=== PATIENT | male | born 1965 | race Caucasian/White ===

== ENCOUNTER 2018-05-22 18:28 | Emergency (ER) | payer OTHER ==
[~2018-05-22] VITALS: Ht 162.6 cm; Wt 101.6 kg
[2018-05-22 18:44] VITALS: BP_SYST 143
[2018-05-22 19:05] VITALS: BP_SYST 137
== END 2018-05-22 19:03 | disposition home or self-care (01) ==
LOC: SED 18:28
DX: J01.90 Acute sinusitis, unspecified (principal)
CPT/HCPCS: 99283

== ENCOUNTER 2020-10-26 12:59 | Inpatient (IN) | payer OTHER, SELFPAY ==
[2020-10-26] VITALS (9 sets, daily range): BP systolic 122–141
[~2020-10-26] VITALS: Ht 167.6 cm; Wt 93.9 kg
--- NOTE | 2020-10-26 13:05 | NUR ---
Placed in room 05 . Placed on director of cardiac rehabilitation, blood pressure machine and pulse oximeter. To gown for exam. Side rails up.
--- NOTE | 2020-10-26 13:07 | NUR ---
Pt brought by self, A&Ox4, pt presents to ER with SOB X2 weeks, afebrile, skin pink and warm, cap refill<3, VSS , respirations evena and unlabored.
[2020-10-26 13:41] LABS: BASOPHILS % (AUTO) 0.2 % (0.0-2.0); EOSINOPHILS % (AUTO) 0.1 % (0.0-4.0); HEMATOCRIT 34.2 % (36-54); HEMOGLOBIN 12.2 g/dL (14.0-18.0); LYMPHOCYTES % (AUTO) 10.8 % (20.5-51.5); MEAN CORPUSCULAR HEMOGLOBIN 31 pg (27-31); MEAN CORPUSCULAR HGB CONC 36 % (32-36); MEAN CORPUSCULAR VOLUME 88 fL (79.0-98.0); MONOCYTES # (AUTO) 0.7 K/uL (0.0-1.0); MONOCYTES % (AUTO) 7.8 % (1.7-9.3); NEUTROPHILS # (AUTO) 7.4 K/uL (1.8-7.7); NEUTROPHILS % (AUTO) 81.1 % (40.0-70.0); PLATELET COUNT (AUTO) 174 K/uL (130-430); RED BLOOD CELL COUNT(AUTO) 3.89 MIL/uL (4.2-6.2); RED CELL DISTRIBUTION WIDTH 13.1 % (9.0-15.0); WHITE BLOOD COUNT (AUTO) 9.1 K/uL (4.8-10.8)
[2020-10-26 13:58] LABS: CALCIUM 8.7 mg/dL (8.4-11.0); CREATININE 1.11 mg/dL (0.55-1.30); POTASSIUM 3.2 mmol/L (3.5-5.1)
[2020-10-26 14:00] LABS: INR 0.9 (0.80-1.20); PROTHROMBIN TIME 9.6 SECS (9.5-12.5)
[2020-10-26 14:04] LABS: ALBUMIN 2.7 g/dL (3.4-4.8); TOTAL BILIRUBIN 0.6 mg/dL (0.0-1.0)
[2020-10-26 14:08] LABS: FIBRINOGEN > 500 mg/dL (200-400)
--- NOTE | 2020-10-26 14:11 | NUR ---
Covid swab collected and sent
--- NOTE | 2020-10-26 14:12 | NUR ---
# 20 gauge angiocath placed to RAC. Use of asceptic technique. Opsite placed over site. Blood return noted. Blood for lab drawn from site. Flushed with 10 cc of normal saline. No evidence of infiltration noted. Patient tolerated well.
--- NOTE | 2020-10-26 14:22 | NUR ---
ER at bedside examining patient.
[2020-10-26] MEDS ORDERED: AZITHROMYCIN 500 MG in NS 250 ML IV ONE (14:30)
[2020-10-26] MEDS ORDERED: IPRATROPIUM/ALBUTEROL SULFATE 3 ML AMPUL.NEB (DUONEB) INH ONE (14:30)
[2020-10-26 14:38] LABS: C-REACTIVE PROTEIN QUANT 31.6 mg/dL (0-0.5)
[2020-10-26] MEDS ORDERED: KCL 20 mEq in 100 mL (PREMIX) 100 ML IV ONE (14:45)
[2020-10-26] MEDS ORDERED: cefTRIAXone 2 GM VIAL ONE (14:46)
[2020-10-26] MEDS ORDERED: AZITHROMYCIN 500 MG/VIAL (ZITHROMAX) IV ONE (14:46)
[2020-10-26] MEDS ORDERED: IOHEXOL 350 mgI/mL, 150 ML INFUS..BTL IV ONE (14:49)
[2020-10-26] MEDS ORDERED: DEXAMETHASONE SOD PHOSPHATE 4 MG/ML VIAL IVP ONE (15:00)
[2020-10-26] MEDS ORDERED: ACETAMINOPHEN 325 MG TABLET PO PRN (15:45)
[2020-10-26] MEDS ORDERED: MAGNESIUM SULFATE 50 ML IV PRN (15:45)
[2020-10-26] MEDS ORDERED: MUPIROCIN 2% TOPICAL OINTMENT 22 GM NS PRN (15:45)
[2020-10-26] MEDS ORDERED: ONDANSETRON HCL 4 MG/2 ML VIAL IVP PRN (15:45)
[2020-10-26] MEDS ORDERED: ENOXAPARIN SODIUM 40 MG/0.4 ML SYRINGE SUBCUT ONE (15:45)
[2020-10-26] MEDS ORDERED: MORPHINE 2 MG/ML INJ. SYRINGE IVP PRN ×2 (15:45)
[2020-10-26] MEDS ORDERED: LORazepam 2 MG/ML VIAL IVP PRN (15:45)
[2020-10-26] MEDS ORDERED: POTASSIUM CHLORIDE 20 MEQ TAB.PRT.SR PO PRN (15:45)
[2020-10-26] MEDS ORDERED: DOCUSATE SODIUM 100 MG CAPSULE PO PRN (15:45)
--- NOTE | 2020-10-26 15:45 | NUR ---
# 20 gauge angiocath placed to and. Use of asceptic technique. Opsite placed over site. Blood return noted. Blood for lab drawn from site. Flushed with 10 cc of normal saline. No evidence of infiltration noted. Patient tolerated well.
--- NOTE | 2020-10-26 16:10 | NUR ---
CONSULTS: Admission consults per Dr. Morrison have been put out. Dr. Melecio Ybarra
--- NOTE | 2020-10-26 16:25 | NUR ---
Lab at bedside.
--- NOTE | 2020-10-26 16:25 | NUR ---
Medication reconciliation completed with information provided by Chuck PARISH. Any prior medication reconciliation on file was reviewed and corrected. Pt takes no medications at home.
[2020-10-26] MEDS ORDERED: DECADRON 4 MG TABLET PO SCH (17:00)
--- NOTE | 2020-10-26 17:01 | NUR ---
Patient will be admitted to care of . Admitted to ICU unit. Will go to room 1. Belongings list completed. Complete and up to date summary report printed. SBAR report to be given at bedside with opportunity for questions.
--- NOTE | 2020-10-26 17:15 | NUR ---
Pt transferred to unit from ED. Received SBAR report from nurse Mera. Pt on BiPAP 25/10, 20, 100%.
[2020-10-26] MEDS ORDERED: COMMUNICATION ORDER XX ONE (18:00)
[2020-10-26] MEDS: DEXAMETHASONE SOD PHOSPHATE 10 MG/ML VIAL IVP SCH (18:00)
--- NOTE | 2020-10-26 18:03 | NUR ---
Called Dr. Chong, covering for Dr. Morrison, for clarification of orders. New orders made.
[2020-10-26] MEDS: NACL 0.9% 1,000 ML IV SCH (18:19)
--- NOTE | 2020-10-26 19:16 | NUR ---
Closing note: SBAR report given to oncoming nurse. All cares endorsed.
--- NOTE | 2020-10-26 20:06 | NUR ---
Initial note Received SBAR report from dayshift RN. Received resting in bed with eyes closed easily aroused. On BIPAP 18/8 100%FiO2, tolerating well. Afebrile. NS infusing to left AC @ 70 cc/hr. Denies pain or discomfort. Will continue to monitor.
[2020-10-26] MEDS ORDERED: cefTRIAXone 1 GM IVPB PREMIX 50 ML IV ONE (20:48)
[2020-10-26] MEDS: cefTRIAXone 1 GM in D5W 50 ML IV SCH (20:52)
[2020-10-26] MEDS: BARICITINIB -Non-Formulary 2 MG TABLET PO SCH (20:53)
[2020-10-26] MEDS: ENOXAPARIN SODIUM 40 MG/0.4 ML SYRINGE SUBCUT SCH (21:00)
--- NOTE | 2020-10-26 21:10 | NUR ---
Due PO medications administered. Tolerated well.
[2020-10-27] VITALS (24 sets, daily range): BP systolic 111–150
[2020-10-27 00:40] LABS: BILIRUBIN,URINE NEGATIVE (NEGATIVE); BLOOD, URINE NEGATIVE (NEGATIVE); CLARITY/URINE CLEAR (CLEAR); COLOR,URINE YELLOW (YELLOW); GLUCOSE,URINE NEGATIVE (NEGATIVE); KETONES,URINE 1+ (NEGATIVE); LEUKOCYTE ESTERASE ,URINE NEGATIVE (NEGATIVE); NITRITE, URINE NEGATIVE (NEGATIVE); PH,URINE 5.5 (5.0-8.0); PROTEIN URINE NEGATIVE (NEGATIVE); UROBILINOGEN,URINE 0.2 (0.2-1.0)
--- NOTE | 2020-10-27 05:45 | NUR ---
CHG bath given. Sitting up on side of bed. Tolerated well.
[2020-10-27 06:43] LABS: BASOPHILS % (AUTO) 0.2 % (0.0-2.0); HEMATOCRIT 33.9 % (36-54); HEMOGLOBIN 11.7 g/dL (14.0-18.0); LYMPHOCYTES # (AUTO) 0.8 K/uL (1.0-5.5); LYMPHOCYTES % (AUTO) 14.1 % (20.5-51.5); MEAN CORPUSCULAR HEMOGLOBIN 31 pg (27-31); MEAN CORPUSCULAR HGB CONC 35 % (32-36); MEAN CORPUSCULAR VOLUME 89 fL (79.0-98.0); MONOCYTES # (AUTO) 0.7 K/uL (0.0-1.0); MONOCYTES % (AUTO) 12.6 % (1.7-9.3); NEUTROPHILS # (AUTO) 4.2 K/uL (1.8-7.7); NEUTROPHILS % (AUTO) 73.1 % (40.0-70.0); PLATELET COUNT (AUTO) 209 K/uL (130-430); RED BLOOD CELL COUNT(AUTO) 3.79 MIL/uL (4.2-6.2); RED CELL DISTRIBUTION WIDTH 13.1 % (9.0-15.0); WHITE BLOOD COUNT (AUTO) 5.8 K/uL (4.8-10.8)
[2020-10-27 06:57] LABS: ALBUMIN 2.2 g/dL (3.4-4.8); CALCIUM 8.3 mg/dL (8.4-11.0); CREATININE 0.98 mg/dL (0.55-1.30); TOTAL BILIRUBIN 0.4 mg/dL (0.0-1.0)
--- NOTE | 2020-10-27 07:10 | NUR ---
Opening note: SBAR report received from night nurse. All cares assumed. Pt on BiPAP 18/8, R 20, 100%, maintaining sats above 90%.
--- NOTE | 2020-10-27 07:20 | NUR ---
Closing note Resting quietly, all needs attended to. SBAR report given to oncoming shift RN.
[2020-10-27] MEDS: BARICITINIB -Non-Formulary 2 MG TABLET PO SCH (08:50)
[2020-10-27] MEDS: CHOLECALCIFEROL (VITAMIN D3) 2,000 UNIT TABLET PO SCH (08:50)
[2020-10-27] MEDS: AZITHROMYCIN 250 MG TABLET PO SCH (08:50)
[2020-10-27] MEDS: ASCORBIC ACID 500 MG TABLET PO SCH (08:50)
[2020-10-27 08:51] LABS: ERYTHROCYTE SEDIMENTATION RATE 99 MM/HR (0-15)
[2020-10-27] MEDS: ENOXAPARIN SODIUM 40 MG/0.4 ML SYRINGE SUBCUT SCH ×2 (08:53→21:36)
--- NOTE | 2020-10-27 09:05 | NUR ---
RT placed pt on High flow, per Dr. Majano orders. High flow 60L 100%, maintaining sats above 90%.
[2020-10-27] MEDS ORDERED: BUDESONIDE 0.5 MG/2 ML AMPUL.NEB INH ONE (10:00)
--- NOTE | 2020-10-27 10:06 | NUR ---
RT NOTES 0820 Pt currently on BIPAP (25/10/ R20 100%), 0901During Dr. Majano's rounds, he ordered pt to be placed on HFNC 60L/100% fio2, saturation 92%. will titrate as needed. will continue to monitor pt. JEM russo.
[2020-10-27 10:10] LABS: C-REACTIVE PROTEIN QUANT 16.4 mg/dL (0-0.5)
--- NOTE | 2020-10-27 12:30 | NUR ---
Pt requesting foods that are easier to eat such as oatmeal, cream of wheat and soups. Vice President Mission Integration Zunilda approved diet change and will enter diet order.
--- NOTE | 2020-10-27 15:49 | NUR ---
Dietitian Recommendations * Recommend mechanical soft, CCHO diet w/ Glucerna TID (ONS provides 660 kcal/day, 30 gm protein/day) * Encourage increase PO intakes LP, RD Please refer to Nutrition Assessment for details. Addendum: 10/27/20 at [address] Amended: Links added.
[2020-10-27] MEDS: NACL 0.9% 1,000 ML IV SCH ×2 (15:54→20:21)
[2020-10-27] MEDS: DEXAMETHASONE SOD PHOSPHATE 10 MG/ML VIAL IVP SCH (17:04)
--- NOTE | 2020-10-27 19:08 | NUR ---
Closing note: SBAR report given to oncoming caustic cresylate shift superintendent nurse. Pt resting in bed.
[2020-10-27] MEDS: cefTRIAXone 1 GM in D5W 50 ML IV SCH (20:00)
[2020-10-28] VITALS (24 sets, daily range): BP systolic 108–174
[2020-10-28 07:09] LABS: ALBUMIN 2.1 g/dL (3.4-4.8); C-REACTIVE PROTEIN QUANT 5.7 mg/dL (0-0.5); CALCIUM 8.2 mg/dL (8.4-11.0); CREATININE 0.82 mg/dL (0.55-1.30); TOTAL BILIRUBIN 0.4 mg/dL (0.0-1.0)
[2020-10-28 07:14] LABS: BASOPHILS % (AUTO) 0.1 % (0.0-2.0); HEMATOCRIT 32.7 % (36-54); HEMOGLOBIN 11.3 g/dL (14.0-18.0); LYMPHOCYTES # (AUTO) 0.9 K/uL (1.0-5.5); LYMPHOCYTES % (AUTO) 9.2 % (20.5-51.5); MEAN CORPUSCULAR HEMOGLOBIN 31 pg (27-31); MEAN CORPUSCULAR HGB CONC 35 % (32-36); MEAN CORPUSCULAR VOLUME 90 fL (79.0-98.0); MONOCYTES # (AUTO) 0.9 K/uL (0.0-1.0); MONOCYTES % (AUTO) 8.7 % (1.7-9.3); NEUTROPHILS # (AUTO) 8.4 K/uL (1.8-7.7); PLATELET COUNT (AUTO) 289 K/uL (130-430); RED BLOOD CELL COUNT(AUTO) 3.65 MIL/uL (4.2-6.2); RED CELL DISTRIBUTION WIDTH 13.3 % (9.0-15.0); WHITE BLOOD COUNT (AUTO) 10.3 K/uL (4.8-10.8)
--- NOTE | 2020-10-28 07:15 | NUR ---
RECEIVED REPORT FROM ENDORSING MANAGING CONSULTANT RN, PATIENT IS LYING IN BED, ON HIGH FLOW 60L 100 %.FIO2 IS BETWEEN 94-96 %. ADVISE PATIENT TO TURN SIDE TO SIDE.
--- NOTE | 2020-10-28 07:30 | NUR ---
BREAKFAST TRAY GIVEN TO PATIENT, PROVIDED ORAL AND BEDSIDE CARE.
--- NOTE | 2020-10-28 08:00 | NUR ---
RT NOTES Dr french is aware of pt saturation on HFNC 90-91. Stated that he's fine with sat between 88-90%, dr educated pt of avoiding laying on back as well.
[2020-10-28] MEDS: BUDESONIDE 0.5 MG/2 ML AMPUL.NEB INH SCH ×2 (08:01→22:02)
[2020-10-28 09:30] LABS: ERYTHROCYTE SEDIMENTATION RATE 83 MM/HR (0-15)
[2020-10-28] MEDS: AZITHROMYCIN 250 MG TABLET PO SCH (09:54)
[2020-10-28] MEDS: CHOLECALCIFEROL (VITAMIN D3) 2,000 UNIT TABLET PO SCH (09:54)
[2020-10-28] MEDS: ASCORBIC ACID 500 MG TABLET PO SCH (09:54)
[2020-10-28] MEDS: ENOXAPARIN SODIUM 40 MG/0.4 ML SYRINGE SUBCUT SCH ×2 (09:59→21:39)
[2020-10-28] MEDS: NACL 0.9% 1,000 ML IV SCH (10:39)
[2020-10-28] MEDS: BARICITINIB -Non-Formulary 2 MG TABLET PO SCH (11:10)
--- NOTE | 2020-10-28 12:30 | NUR ---
LUNCH TRAY GIVEN TO PATIENT.BEDSIDE CARE RENDERED.
--- NOTE | 2020-10-28 13:15 | NUR ---
PATIENT SUPERVISOR FISH BAIT PROCESSING VISITED AND SIGN SOME PAPERS.
--- NOTE | 2020-10-28 13:58 | NUR ---
RT NOTES Changed sterile water, maintained appropriate temperature. Saturation 92%.
--- NOTE | 2020-10-28 14:20 | NUR ---
INSERTED RIGHT HAND PERIPHERAL IV 22 GAUGE.
[2020-10-28] MEDS: DEXAMETHASONE SOD PHOSPHATE 10 MG/ML VIAL IVP SCH (17:31)
--- NOTE | 2020-10-28 19:23 | NUR ---
ENDORSED PATIENT TO NEW CAR INSPECTOR RN FOR CONTINUATION OF CARE
[2020-10-28] MEDS: cefTRIAXone 1 GM in D5W 50 ML IV SCH (20:24)
--- NOTE | 2020-10-28 20:30 | NUR ---
PATIENT WAS ACCEPTED AND ASSESS DONE NOTICE PATIENT WAS RESP; RATE INCREASE, LABOR BREATHING, RATE 40 , SOB OR PAIN , ASK IF HAVING RESP PROBLEM DEMISE STAT HE WAS TOLD TO BREATH TO KEEP HIS RESP, RATE TO AN CERTAIN NUMBER , EXPLAIN THIS WAS NOT WAY TO BREATH ASK TO BREATH NORMAL SO CAN MONITOR HIS BREATHING , PATIENT IS ON THE HIFLOW LITER NASAL CANNULA ALSO SHOW SIGN OF ANXIETY , WILL SPEAK WITH THE RESP THERAPISTOF THE PATIENT CONDITION AT THIS TIME STABLE
--- NOTE | 2020-10-28 22:00 | NUR ---
PATIENT WAS GIVEN ATIVAN 2MG IV, IF NOT CALM DOWN AND RELAX WILL PLACE ON BIPAP , STABLE WILL CONTINUED TO MONITOR THE PATIENT
[2020-10-29] VITALS (23 sets, daily range): BP systolic 107–152
[2020-10-29] MEDS: NACL 0.9% 1,000 ML IV SCH ×2 (00:57→03:30)
--- NOTE | 2020-10-29 04:00 | NUR ---
PATIENT WAS SLEEP FROM THE ATIVAN 2MG IV GIVEN AT 2216 HAD C/O OF BEING COLD NOTICE THE ROOM WAS VERY COLD , PATIENT HAS NON-REBREATH MASK AT 100% INTACT WITH THE HIFLOW STABLE WILL CONTINUED WITH PLAN OF CARE ,STAble
[2020-10-29 06:45] LABS: BASOPHILS % (AUTO) 0.1 % (0.0-2.0); HEMATOCRIT 31.8 % (36-54); HEMOGLOBIN 10.9 g/dL (14.0-18.0); LYMPHOCYTES # (AUTO) 1.3 K/uL (1.0-5.5); MEAN CORPUSCULAR HEMOGLOBIN 31 pg (27-31); MEAN CORPUSCULAR HGB CONC 34 % (32-36); MEAN CORPUSCULAR VOLUME 90 fL (79.0-98.0); MONOCYTES # (AUTO) 0.9 K/uL (0.0-1.0); MONOCYTES % (AUTO) 8.2 % (1.7-9.3); NEUTROPHILS # (AUTO) 9.3 K/uL (1.8-7.7); NEUTROPHILS % (AUTO) 80.7 % (40.0-70.0); PLATELET COUNT (AUTO) 319 K/uL (130-430); RED BLOOD CELL COUNT(AUTO) 3.52 MIL/uL (4.2-6.2); RED CELL DISTRIBUTION WIDTH 13.2 % (9.0-15.0); WHITE BLOOD COUNT (AUTO) 11.5 K/uL (4.8-10.8)
[2020-10-29 07:09] LABS: ALBUMIN 2.1 g/dL (3.4-4.8); C-REACTIVE PROTEIN QUANT 2.6 mg/dL (0-0.5); CREATININE 0.79 mg/dL (0.55-1.30); TOTAL BILIRUBIN 0.3 mg/dL (0.0-1.0)
[2020-10-29] MEDS: BUDESONIDE 0.5 MG/2 ML AMPUL.NEB INH SCH (09:00)
[2020-10-29] MEDS: ENOXAPARIN SODIUM 40 MG/0.4 ML SYRINGE SUBCUT SCH ×2 (09:05→20:22)
[2020-10-29] MEDS: CHOLECALCIFEROL (VITAMIN D3) 2,000 UNIT TABLET PO SCH (09:05)
[2020-10-29] MEDS: AZITHROMYCIN 250 MG TABLET PO SCH (09:06)
[2020-10-29] MEDS: ASCORBIC ACID 500 MG TABLET PO SCH (09:06)
[2020-10-29] MEDS: BARICITINIB -Non-Formulary 2 MG TABLET PO SCH (09:07)
--- NOTE | 2020-10-29 09:10 | NUR ---
BAR CODE MEDICATION NOT WORKING Zinc doesn't scan. Suha in pharmacy notified. Medication was borrowed from another hospital.
[2020-10-29 09:19] LABS: ERYTHROCYTE SEDIMENTATION RATE 36 MM/HR (0-15)
--- NOTE | 2020-10-29 18:00 | NUR ---
0800-received patient on vapotherm 60L and nonrebreather but patient removes nonrebreather with movement. AAO x3. encouraged patient to sleep on side. Voided 500cc clear and yellow urine. Encouraged to eat due to poor appetite 1000- patient consumed ensure but very little food. Patient had moderate brown stool on bedpan. He desats while getting to edge of bed to 81% but recovers within up to 45min. Encouraged to take deep slow breaths. RR 30s 1200- refused lunch, sleeping on his side. 1400- patient lowered to 40L per RT w 100% oxygen. 1600- voided 400cc, [facility] PICC, IVF changed to site 1745- Remdesevir infusion ongoing. Complete bed bath completed. 1800-voided 400cc, son called for update, Dr. Jane in to see patient and updated on events of day. 1830- total uop for shift 1300cc.
[2020-10-29] MEDS: cefTRIAXone 1 GM in D5W 50 ML IV SCH (20:21)
[2020-10-29] MEDS: DEXAMETHASONE SOD PHOSPHATE 10 MG/ML VIAL IVP SCH (20:52)
[2020-10-30] VITALS (24 sets, daily range): BP systolic 95–132
[2020-10-30] MEDS: NACL 0.9% 1,000 ML IV SCH (00:33)
[2020-10-30 06:54] LABS: EOSINOPHILS % (AUTO) 0.1 % (0.0-4.0); HEMATOCRIT 36.8 % (36-54); HEMOGLOBIN 12.5 g/dL (14.0-18.0); LYMPHOCYTES # (AUTO) 1.2 K/uL (1.0-5.5); LYMPHOCYTES % (AUTO) 9.8 % (20.5-51.5); MEAN CORPUSCULAR HEMOGLOBIN 31 pg (27-31); MEAN CORPUSCULAR HGB CONC 34 % (32-36); MEAN CORPUSCULAR VOLUME 90 fL (79.0-98.0); MONOCYTES # (AUTO) 0.8 K/uL (0.0-1.0); MONOCYTES % (AUTO) 6.6 % (1.7-9.3); NEUTROPHILS # (AUTO) 10.2 K/uL (1.8-7.7); NEUTROPHILS % (AUTO) 83.5 % (40.0-70.0); PLATELET COUNT (AUTO) 407 K/uL (130-430); RED BLOOD CELL COUNT(AUTO) 4.07 MIL/uL (4.2-6.2); RED CELL DISTRIBUTION WIDTH 12.9 % (9.0-15.0); WHITE BLOOD COUNT (AUTO) 12.2 K/uL (4.8-10.8)
--- NOTE | 2020-10-30 07:00 | NUR ---
Recv report fr Xena reardon, patient is inbed on Hi Flow nc/ at 40L @ 100%, patient is aao x 4 telemetry shows normal sinus rhythm, sob on exertion, denies pain , denies short of breath, i will continue nursing care and interventions.
[2020-10-30 08:13] LABS: ALBUMIN 2.4 g/dL (3.4-4.8); C-REACTIVE PROTEIN QUANT 5.9 mg/dL (0-0.5); CALCIUM 8.6 mg/dL (8.4-11.0); CREATININE 0.83 mg/dL (0.55-1.30); PHOSPHORUS 4.3 mg/dL (2.7-4.5); POTASSIUM 3.8 mmol/L (3.5-5.1); TOTAL BILIRUBIN 0.5 mg/dL (0.0-1.0)
[2020-10-30] MEDS: BARICITINIB -Non-Formulary 2 MG TABLET PO SCH (08:51)
[2020-10-30] MEDS: ASCORBIC ACID 500 MG TABLET PO SCH (08:51)
[2020-10-30] MEDS: AZITHROMYCIN 250 MG TABLET PO SCH (08:52)
[2020-10-30] MEDS: ENOXAPARIN SODIUM 40 MG/0.4 ML SYRINGE SUBCUT SCH ×2 (08:52→20:44)
[2020-10-30] MEDS: CHOLECALCIFEROL (VITAMIN D3) 2,000 UNIT TABLET PO SCH (08:52)
[2020-10-30] MEDS: BUDESONIDE 0.5 MG/2 ML AMPUL.NEB INH SCH (09:00)
--- NOTE | 2020-10-30 10:00 | NUR ---
Patient is in bed no changed in condition, Dr. Julio came to see the patient, no orders receive, patient still dieter shortness of brearth, blood pressure stable, i will continue to monitor the pateint.
[2020-10-30 10:52] LABS: ERYTHROCYTE SEDIMENTATION RATE 49 MM/HR (0-15)
--- NOTE | 2020-10-30 12:00 | NUR ---
Patiens is in bed , comfortable no changed, in conditon.
--- NOTE | 2020-10-30 12:47 | NUR ---
Nutrition F/U Admitting Diagnosis: COVID, pneumonia Medical History Comment: PMH: Hx of childhood asthma and SIDNEY, previously vaccinated w/ J&J vaccine for COVID per physician notes Pt also found w/ acute hypoxic respiratory failure, hyponatremia, hypokalemia, malnutrition, and obesity per physician notes SARS-CoV-2 Ag (Rapid) Positive 10/26 Subjective Information: Pt remains in isolation precaution for COVID-[address] visit was deferred. Pt was seen through glass door/window in ICU, pt was seen awake and watching in his phone/pad. RN Preston reported that pt ate the eggs this morning and finished all of his Glucerna. Per EMR review, pt w/ severe breakthrough infection and this is possibly d/t the Delta or Lambda variant. Pt continues w/ remdesivir and decadron. Pt is still hypoxic, on 40% HFNC. Last BM 10/30 x1, Mick scale: 20. No skin issues/edema noted. PO intake records indicate pt is w/ inadequate oral intake. Maximum encouragement during meals and ONS will be continued. Current Diet Order/Nutrition Support: Mechanical soft CCHO diet, Glucerna TID x3 days Pertinent Medications: VIT D3, VIT C, lovenox, zinc, decadron , Remdesivir, Zofran, Colace Pertinent Labs 10/30: WBC 12.2H, Na 137 WNL, BG 116 H, BUN 16WNL, Cre 0.83WNL. Height: 5 feet, 6.00 inches Weight: 207 pounds/ 93.524207 kilograms (10/27) stable Body Mass Index: 33.41 kg/m2 Slade/Adjusted Body Weight: 142#/65 kg. Adj IBW (obesity): 158#/72 kg Estimated Energy Expenditure (kcals/day) 7069-1467 kcal/day (30-35 kcal/kg IBW d/t acute state) Estimated Protein Required (g/day) 78-98 gm/day (1.2-1.5 gm/kg IBW d/t acute state) Estimated Fluid Required (l/day) 2-2.3 L/day (1 ml/kcal/day for maintenance) Problem/Etiology/Signs/Symptoms Increased nutritional needs related to metabolic demands as evidenced by estimated nutritional requirements for acute state. (*ongoing) Altered nutrition-related labs related to possible medication-induced hyperglycemia as evidenced by elevated BG levels and Decadron. (*ongoing) Impaired eating ability related to difficulty breathing as evidenced by RN report. (*ongoing) Expected Outcomes/Goals - Monitor appetite and PO intakes w/ goal of pt meeting at least 75% of estimated nutritional needs, labs trending WNL, normal GI function, and skin integrity/wt maintenance Dietitian Recommendations * Recommend continue mechanical soft, CCHO diet w/ Glucerna TID (ONS provides 660 kcal/day, 30 gm protein/day) * Encourage increase PO intakes Follow Up High Risk: F/U in 2-3days
--- NOTE | 2020-10-30 12:53 | NUR ---
Dietitian Recommendations * Recommend continue mechanical soft, CCHO diet w/ Glucerna TID (ONS provides 660 kcal/day, 30 gm protein/day) * Encourage increase PO intakes Please see Nutrition F/U note for details [facility], RD
[2020-10-30] MEDS: DEXAMETHASONE SOD PHOSPHATE 10 MG/ML VIAL IVP SCH (17:00)
--- NOTE | 2020-10-30 20:10 | NUR ---
Patient awake alert using Cell Phone on bed , chest movement symmetrical on High Flow 02 @ 90 % 02 SAT 92 % Respirations Regular also unlabored procedures explained / .
[2020-10-30] MEDS: cefTRIAXone 1 GM in D5W 50 ML IV SCH (20:43)
[2020-10-30] MEDS: ZOLPIDEM TARTRATE 5 MG TABLET PO PRN (20:54)
--- NOTE | 2020-10-30 21:54 | NUR ---
Patient awake sitting up in bed using bed side urinal as needed clear yellow urine noted .
--- NOTE | 2020-10-30 22:16 | NUR ---
Patient on MECHANICAL Soft PO diet ordered diet tolerating no s/sx of aspiration Respirations Regular also unlabored 02 SAT 94 %
--- NOTE | 2020-10-30 23:54 | NUR ---
High Flow 02 90 % Respirations Regular also unlabored skin Remains dry warm no use of accessory muscles encourage position change & tolerated .
[2020-10-31] VITALS (24 sets, daily range): BP systolic 87–130
--- NOTE | 2020-10-31 02:45 | NUR ---
Rounding patient awake verbally Responsive 02 SAT 95 % CHEST MOVEMENT symmetrical & unlabored .
--- NOTE | 2020-10-31 02:47 | NUR ---
DR Keila COYNE here to see patient .
--- NOTE | 2020-10-31 03:26 | NUR ---
AMBIEN 10 MG po administer per patient Request for sleep aide .
[2020-10-31 06:33] LABS: BASOPHILS % (AUTO) 0.2 % (0.0-2.0); EOSINOPHILS % (AUTO) 0.1 % (0.0-4.0); HEMATOCRIT 36.1 % (36-54); HEMOGLOBIN 12.1 g/dL (14.0-18.0); LYMPHOCYTES # (AUTO) 1.1 K/uL (1.0-5.5); LYMPHOCYTES % (AUTO) 7.5 % (20.5-51.5); MEAN CORPUSCULAR HEMOGLOBIN 31 pg (27-31); MEAN CORPUSCULAR HGB CONC 34 % (32-36); MEAN CORPUSCULAR VOLUME 91 fL (79.0-98.0); MONOCYTES # (AUTO) 0.7 K/uL (0.0-1.0); MONOCYTES % (AUTO) 5.3 % (1.7-9.3); NEUTROPHILS # (AUTO) 12.2 K/uL (1.8-7.7); NEUTROPHILS % (AUTO) 86.9 % (40.0-70.0); PLATELET COUNT (AUTO) 473 K/uL (130-430); RED BLOOD CELL COUNT(AUTO) 3.97 MIL/uL (4.2-6.2); RED CELL DISTRIBUTION WIDTH 13.1 % (9.0-15.0); WHITE BLOOD COUNT (AUTO) 14.1 K/uL (4.8-10.8)
--- NOTE | 2020-10-31 07:00 | NUR ---
Assumed Care Assumed care of pt. Pt lying comfortably in bed, no distress demonstrated O2 sat 94% on HFNC 40L/min 90%.
[2020-10-31 07:52] LABS: C-REACTIVE PROTEIN QUANT 4.4 mg/dL (0-0.5); CALCIUM 8.8 mg/dL (8.4-11.0); CREATININE 0.89 mg/dL (0.55-1.30); POTASSIUM 4.2 mmol/L (3.5-5.1)
[2020-10-31] MEDS: ASCORBIC ACID 500 MG TABLET PO SCH (08:04)
[2020-10-31] MEDS: AZITHROMYCIN 250 MG TABLET PO SCH (08:04)
[2020-10-31] MEDS: CHOLECALCIFEROL (VITAMIN D3) 2,000 UNIT TABLET PO SCH (08:04)
[2020-10-31] MEDS: ENOXAPARIN SODIUM 40 MG/0.4 ML SYRINGE SUBCUT SCH ×2 (08:05→20:28)
[2020-10-31] MEDS: BARICITINIB -Non-Formulary 2 MG TABLET PO SCH (08:07)
[2020-10-31] MEDS: BUDESONIDE 0.5 MG/2 ML AMPUL.NEB INH SCH (09:00)
--- NOTE | 2020-10-31 09:00 | NUR ---
Pt Update Pt ate 75% of breakfast independently sitting at bedside with feet dangling. Pt maintained O2 saturation>89% while eating. Tolerated morning PO medications well.Pt has also been turning left and right in hour intervals since I provided encouragement at the start of shift.
[2020-10-31 09:17] LABS: ERYTHROCYTE SEDIMENTATION RATE 79 MM/HR (0-15)
--- NOTE | 2020-10-31 12:00 | NUR ---
Pt Update Pt resting quietly and comfortably in bed. Says shortness of breath has improved but still has non-productive cough. He is still turning from right to left frequently. He sits/stands at bedside to use urinal with good urine output.
--- NOTE | 2020-10-31 15:00 | NUR ---
Assumed care of patient. Pt resting quietly in bed. 02 sats 91%.
[2020-10-31] MEDS: DEXAMETHASONE SOD PHOSPHATE 10 MG/ML VIAL IVP SCH (18:10)
--- NOTE | 2020-10-31 19:39 | NUR ---
Report given to oncoming nurse for assumption of care. Pt tolerated sitting over the side of the bed eating dinner. remains SR on monitor. 02 asts 94 % with 02 at 90% high flow.
--- NOTE | 2020-10-31 20:00 | NUR ---
AWAKE, ALERT, ORIENTED X4. ON O2 HIGH FLOW AT 40L/MIN, 90% FIO2. SITS UP AT SIDE OF BED. ATE ABOUT 90% OF DINNER. VOIDED APPROX 250CC CLEAR YELLOW URINE VIA URINAL.
[2020-10-31] MEDS: cefTRIAXone 1 GM in D5W 50 ML IV SCH (20:21)
--- NOTE | 2020-10-31 21:00 | NUR ---
DEFECATED 1 MODERATE FORMED BROWN STOOL VIA BEDPAN. FRANK-CARE RENDERED.
[2020-11-01] VITALS (24 sets, daily range): BP systolic 85–156
--- NOTE | 2020-11-01 | NUR ---
DOZES ON AND OFF. TURNS SELF WELL.
--- NOTE | 2020-11-01 03:00 | NUR ---
SOUNDLY ASLEEP. NO DISTRESS NOTED.
--- NOTE | 2020-11-01 06:00 | NUR ---
SLEPT WELL MOST OF NOC. VOIDED 350CC CLEAR YELLOW URINE VIA URINAL. REMAINS IN GUARDED CONDITION.
[2020-11-01 06:26] LABS: BASOPHILS # (AUTO) 0.1 K/uL (0.0-0.2); BASOPHILS % (AUTO) 0.5 % (0.0-2.0); EOSINOPHILS # (AUTO) 0.1 K/uL (0.0-0.4); EOSINOPHILS % (AUTO) 0.4 % (0.0-4.0); HEMATOCRIT 38.4 % (36-54); HEMOGLOBIN 12.9 g/dL (14.0-18.0); LYMPHOCYTES # (AUTO) 1.2 K/uL (1.0-5.5); LYMPHOCYTES % (AUTO) 6.7 % (20.5-51.5); MEAN CORPUSCULAR HEMOGLOBIN 31 pg (27-31); MEAN CORPUSCULAR HGB CONC 34 % (32-36); MEAN CORPUSCULAR VOLUME 92 fL (79.0-98.0); MONOCYTES # (AUTO) 0.9 K/uL (0.0-1.0); MONOCYTES % (AUTO) 4.9 % (1.7-9.3); NEUTROPHILS # (AUTO) 15.3 K/uL (1.8-7.7); NEUTROPHILS % (AUTO) 87.5 % (40.0-70.0); PLATELET COUNT (AUTO) 508 K/uL (130-430); RED BLOOD CELL COUNT(AUTO) 4.18 MIL/uL (4.2-6.2); RED CELL DISTRIBUTION WIDTH 13.5 % (9.0-15.0); WHITE BLOOD COUNT (AUTO) 17.5 K/uL (4.8-10.8)
[2020-11-01 06:46] LABS: CREATININE 0.97 mg/dL (0.55-1.30); PHOSPHORUS 4.3 mg/dL (2.7-4.5); POTASSIUM 5.3 mmol/L (3.5-5.1)
[2020-11-01 08:11] LABS: ERYTHROCYTE SEDIMENTATION RATE 75 MM/HR (0-15)
[2020-11-01] MEDS: ASCORBIC ACID 500 MG TABLET PO SCH (09:00)
[2020-11-01] MEDS: BARICITINIB -Non-Formulary 2 MG TABLET PO SCH (09:00)
[2020-11-01] MEDS: BUDESONIDE 0.5 MG/2 ML AMPUL.NEB INH SCH (09:00)
[2020-11-01] MEDS: CHOLECALCIFEROL (VITAMIN D3) 2,000 UNIT TABLET PO SCH (09:01)
[2020-11-01] MEDS: ENOXAPARIN SODIUM 40 MG/0.4 ML SYRINGE SUBCUT SCH ×2 (09:02→21:12)
[2020-11-01] MEDS: AZITHROMYCIN 250 MG TABLET PO SCH (09:02)
[2020-11-01 09:17] LABS: C-REACTIVE PROTEIN QUANT 2.2 mg/dL (0-0.5)
[2020-11-01] MEDS ORDERED: SODIUM POLYSTYRENE SULFONATE 15 GM/60 ML UDBTL PO ONE (09:30)
[2020-11-01] MEDS: NACL 0.9% 1,000 ML IV SCH (10:24)
--- NOTE | 2020-11-01 11:30 | NUR ---
pt is alert and oriented times four is wearing high flow oxygen at 90% malou well Sating 95-96% overall appearances fair denies pain pt had to be encourage to do his own hygiene but did without incident
--- NOTE | 2020-11-01 13:54 | NUR ---
RT NOTES Pt's current saturation is 94%. Titrated to 0.80. No adverse reactions noted. Will monitor pt.
--- NOTE | 2020-11-01 16:00 | NUR ---
pt was given kayexlalate for high potassium level and was started on NS @70 ml/hr for a high bun level teaching given to pt voiced his understanding well is using bsc at bedside had x1 lge form bm and voiding qs cl yellow urine via urinal at bedside.
--- NOTE | 2020-11-01 17:20 | NUR ---
RT NOTES FIO2 to 0.75. No distress noted. Rn made aware.
[2020-11-01] MEDS: DEXAMETHASONE SOD PHOSPHATE 10 MG/ML VIAL IVP SCH (18:28)
--- NOTE | 2020-11-01 19:14 | NUR ---
report given to incoming nurse all questions answered pt condition remains stable without incident
[2020-11-01] MEDS: cefTRIAXone 1 GM in D5W 50 ML IV SCH (21:11)
[2020-11-02] VITALS (23 sets, daily range): BP systolic 85–171
[2020-11-02] MEDS: NACL 0.9% 1,000 ML IV SCH ×2 (02:41→16:16)
[2020-11-02 06:15] LABS: BASOPHILS % (AUTO) 0.2 % (0.0-2.0); EOSINOPHILS # (AUTO) 0.3 K/uL (0.0-0.4); EOSINOPHILS % (AUTO) 1.9 % (0.0-4.0); HEMATOCRIT 37.2 % (36-54); HEMOGLOBIN 12.4 g/dL (14.0-18.0); LYMPHOCYTES # (AUTO) 2.6 K/uL (1.0-5.5); LYMPHOCYTES % (AUTO) 14.9 % (20.5-51.5); MEAN CORPUSCULAR HEMOGLOBIN 31 pg (27-31); MEAN CORPUSCULAR HGB CONC 33 % (32-36); MEAN CORPUSCULAR VOLUME 92 fL (79.0-98.0); MONOCYTES # (AUTO) 1.5 K/uL (0.0-1.0); MONOCYTES % (AUTO) 8.5 % (1.7-9.3); NEUTROPHILS # (AUTO) 12.9 K/uL (1.8-7.7); NEUTROPHILS % (AUTO) 74.5 % (40.0-70.0); PLATELET COUNT (AUTO) 464 K/uL (130-430); RED BLOOD CELL COUNT(AUTO) 4.05 MIL/uL (4.2-6.2); RED CELL DISTRIBUTION WIDTH 13.5 % (9.0-15.0); WHITE BLOOD COUNT (AUTO) 17.4 K/uL (4.8-10.8)
[2020-11-02 06:42] LABS: CALCIUM 8.5 mg/dL (8.4-11.0); CREATININE 1.19 mg/dL (0.55-1.30); POTASSIUM 4.4 mmol/L (3.5-5.1)
--- NOTE | 2020-11-02 07:10 | NUR ---
Opening note: SBAR report received from night nurse. All cares assumed. Pt resting in bed with eyes closed. High flow 40L, 70%.
--- NOTE | 2020-11-02 08:40 | NUR ---
RT NOTES Changed HFNC sterile water, titrated FIO2 to 0.63. No adverse reactions noted. Pt. was encouraged to cont. self-proning or laying/sleeping on his side. Will monitor pt. JEM Mathis made aware.
[2020-11-02 08:50] LABS: C-REACTIVE PROTEIN QUANT 1.4 mg/dL (0-0.5)
[2020-11-02] MEDS: BUDESONIDE 0.5 MG/2 ML AMPUL.NEB INH SCH (09:00)
[2020-11-02] MEDS: CHOLECALCIFEROL (VITAMIN D3) 2,000 UNIT TABLET PO SCH (09:25)
[2020-11-02] MEDS: ASCORBIC ACID 500 MG TABLET PO SCH (09:25)
[2020-11-02] MEDS: BARICITINIB -Non-Formulary 2 MG TABLET PO SCH (09:25)
[2020-11-02] MEDS: ENOXAPARIN SODIUM 40 MG/0.4 ML SYRINGE SUBCUT SCH ×2 (09:26→21:56)
[2020-11-02 10:38] LABS: ERYTHROCYTE SEDIMENTATION RATE 43 MM/HR (0-15)
--- NOTE | 2020-11-02 14:45 | NUR ---
Nutrition F/U RD reviewed pt's current EMR including diet Hx, physician notes, nursing notes, pertinent labs/meds/procedures, care trends, and care activity. Short note d/t high pt load. Current Diet Order: Mechanical soft, CCHO diet w/ Glucerna TID x6 days Pt remains on airborne isolation for COVID-19. RD bedside visit deferred. RD spoke w/ pt's RN who reported that pt has been eating very well, and has even requested additional portions. RD suggested double servings of proteins and non-starchy vegetables; RN acknowledged and appreciated. Pt is meeting nutritional needs at this time. Pt is at moderate nutritional risk; RD to F/U within 3-5 days.
--- NOTE | 2020-11-02 19:06 | NUR ---
Closing note: SBAR report given to night nurse. All cares endorsed. Pt laying in bed resting. High flow set at 40L, 55%.
[2020-11-02] MEDS: cefTRIAXone 1 GM in D5W 50 ML IV SCH (21:57)
[2020-11-02] MEDS: ZOLPIDEM TARTRATE 5 MG TABLET PO PRN (22:00)
[2020-11-03] VITALS (24 sets, daily range): BP systolic 90–153
[2020-11-03 06:47] LABS: CALCIUM 8.4 mg/dL (8.4-11.0); CREATININE 0.91 mg/dL (0.55-1.30); POTASSIUM 4.9 mmol/L (3.5-5.1)
[2020-11-03 07:54] LABS: BASOPHILS % (AUTO) 0.1 % (0.0-2.0); EOSINOPHILS % (AUTO) 0.1 % (0.0-4.0); HEMATOCRIT 36.3 % (36-54); HEMOGLOBIN 12.2 g/dL (14.0-18.0); LYMPHOCYTES # (AUTO) 1.1 K/uL (1.0-5.5); LYMPHOCYTES % (AUTO) 7.2 % (20.5-51.5); MEAN CORPUSCULAR HEMOGLOBIN 31 pg (27-31); MEAN CORPUSCULAR HGB CONC 34 % (32-36); MEAN CORPUSCULAR VOLUME 92 fL (79.0-98.0); MONOCYTES # (AUTO) 0.6 K/uL (0.0-1.0); MONOCYTES % (AUTO) 4.3 % (1.7-9.3); NEUTROPHILS # (AUTO) 12.9 K/uL (1.8-7.7); NEUTROPHILS % (AUTO) 88.3 % (40.0-70.0); PLATELET COUNT (AUTO) 472 K/uL (130-430); RED BLOOD CELL COUNT(AUTO) 3.93 MIL/uL (4.2-6.2); RED CELL DISTRIBUTION WIDTH 13.3 % (9.0-15.0); WHITE BLOOD COUNT (AUTO) 14.7 K/uL (4.8-10.8)
[2020-11-03] MEDS: DEXAMETHASONE SOD PHOSPHATE 10 MG/ML VIAL IVP SCH ×2 (08:34→17:57)
[2020-11-03] MEDS: NACL 0.9% 1,000 ML IV SCH ×2 (08:35→20:52)
[2020-11-03] MEDS: CHOLECALCIFEROL (VITAMIN D3) 2,000 UNIT TABLET PO SCH (08:36)
[2020-11-03] MEDS: ASCORBIC ACID 500 MG TABLET PO SCH (08:36)
[2020-11-03] MEDS: BARICITINIB -Non-Formulary 2 MG TABLET PO SCH (08:36)
[2020-11-03] MEDS: ENOXAPARIN SODIUM 40 MG/0.4 ML SYRINGE SUBCUT SCH ×2 (08:36→20:51)
[2020-11-03] MEDS ORDERED: ENOXAPARIN SODIUM 40 MG/0.4 ML SYRINGE ONE (08:53)
[2020-11-03] MEDS: BUDESONIDE 0.5 MG/2 ML AMPUL.NEB INH SCH (10:19)
--- NOTE | 2020-11-03 19:15 | NUR ---
Pt report received. Pt AAOx4, even and non-labored respirations, O2 at 40 LPM/HFNC at 60% FiO2. PICC to Right upper arm patent and secure with NS at 70 mL/hr. Pt lying in prone position watching videos on phone. Denies c/o pain or discomfort. No needs verbalized at this time.
[2020-11-03] MEDS: cefTRIAXone 1 GM in D5W 50 ML IV SCH (20:48)
[2020-11-03] MEDS: ZOLPIDEM TARTRATE 5 MG TABLET PO PRN (20:49)
--- NOTE | 2020-11-03 20:49 | NUR ---
Pt requests Ambien to help him sleep. Ambien 10 mg given PO.
--- NOTE | 2020-11-03 22:30 | NUR ---
Pt sitting on side of bed. Pudding and apple sauce provided per request
[2020-11-04] VITALS (25 sets, daily range): BP systolic 102–173
--- NOTE | 2020-11-04 02:00 | NUR ---
Pt AAOx4, sitting on side of bed. No needs verbalized at this time. VSS, NAD.
[2020-11-04] MEDS: NACL 0.9% 1,000 ML IV SCH ×2 (06:17→23:30)
[2020-11-04 06:28] LABS: HEMATOCRIT 35.1 % (36-54); HEMOGLOBIN 11.9 g/dL (14.0-18.0); LYMPHOCYTES # (AUTO) 1.1 K/uL (1.0-5.5); LYMPHOCYTES % (AUTO) 7.7 % (20.5-51.5); MEAN CORPUSCULAR HEMOGLOBIN 31 pg (27-31); MEAN CORPUSCULAR HGB CONC 34 % (32-36); MEAN CORPUSCULAR VOLUME 91 fL (79.0-98.0); MONOCYTES # (AUTO) 0.7 K/uL (0.0-1.0); MONOCYTES % (AUTO) 4.9 % (1.7-9.3); NEUTROPHILS # (AUTO) 12.3 K/uL (1.8-7.7); NEUTROPHILS % (AUTO) 87.4 % (40.0-70.0); PLATELET COUNT (AUTO) 435 K/uL (130-430); RED BLOOD CELL COUNT(AUTO) 3.84 MIL/uL (4.2-6.2); RED CELL DISTRIBUTION WIDTH 13.4 % (9.0-15.0); WHITE BLOOD COUNT (AUTO) 14.1 K/uL (4.8-10.8)
[2020-11-04 06:38] LABS: CALCIUM 8.4 mg/dL (8.4-11.0); CREATININE 0.84 mg/dL (0.55-1.30); POTASSIUM 4.6 mmol/L (3.5-5.1)
--- NOTE | 2020-11-04 07:05 | NUR ---
Pt report given to oncoming RN. Pt AAOx4, coherent speech, even and non-labored respirations, O2 at 35LPM/HFNC at 60% FiO2. PICC to KASSIE patent and secure with NS at 70 mL/hr. Total U/O per urinal was 1850 mL this shift. VSS, NAD.
[2020-11-04] MEDS: ASCORBIC ACID 500 MG TABLET PO SCH (08:14)
[2020-11-04] MEDS: ENOXAPARIN SODIUM 40 MG/0.4 ML SYRINGE SUBCUT SCH (08:15)
[2020-11-04] MEDS: CHOLECALCIFEROL (VITAMIN D3) 2,000 UNIT TABLET PO SCH (08:15)
[2020-11-04] MEDS: BARICITINIB -Non-Formulary 2 MG TABLET PO SCH (08:18)
--- NOTE | 2020-11-04 10:25 | NUR ---
Covid swab done per order pt tolerated well teaching given
[2020-11-04] MEDS: DEXAMETHASONE SOD PHOSPHATE 10 MG/ML VIAL IVP SCH (17:18)
--- NOTE | 2020-11-04 18:47 | NUR ---
pt condition remains stable throughout the shift is a/a/ox4 uses bsc alone appetite good voiding qs cl yellow urine is still on the hiflow nc malou well without incident sr on the monitor vss.
[2020-11-04] MEDS: BUDESONIDE 0.5 MG/2 ML AMPUL.NEB INH SCH (21:00)
--- NOTE | 2020-11-04 21:00 | NUR ---
PATIENT WAS ACCEPTED AND ASSESS DONE , PATIENT IS RESPONDING TO PLAN OF CARE ,WILL START WEANING OFF HIFLOW SITTING ON SIDE OF BED KACIE PAIN OR SOB CONSUMED LARGE AMOUNT OF WATER USED THE URINAL Q 30 MIN WWITH CLEAR URINE NO BM AT THIS TIME , HAD AN PCR TEST , WAITING FOR THE RESULT , STABLE
[2020-11-04] MEDS: cefTRIAXone 1 GM in D5W 50 ML IV SCH (21:30)
--- NOTE | 2020-11-04 23:00 | NUR ---
PATIENT GIVEN AMBEIN 10 MG FOR SLEEP WAS , CONSUMED PO WELL AND IN LARGE AMOUNT IVF OF NS WAS HUNG PATENT PATIENT ON HIFLOW 40LITER 60% CHANGE TO 30 LITER 40% WILL CONTINUED TO WEAN STABLE TOLERATE WEL;L
[2020-11-04] MEDS: ZOLPIDEM TARTRATE 5 MG TABLET PO PRN (23:14)
[2020-11-05] VITALS (19 sets, daily range): BP systolic 105–175
--- NOTE | 2020-11-05 01:00 | NUR ---
PATIENT PLACE ON OXYMIER NASAL CANNULA TOLERATE WELL STABLE NO SOB OR CHEST PAIN , VOIDING WELL, STABLE
--- NOTE | 2020-11-05 07:15 | NUR ---
OPENING NOTE: RECEIVED PT USING SBAR REPORTING. ALL CARE ASSUMED.
[2020-11-05 07:37] LABS: BASOPHILS % (AUTO) 0.1 % (0.0-2.0); HEMATOCRIT 36.4 % (36-54); HEMOGLOBIN 12.3 g/dL (14.0-18.0); LYMPHOCYTES % (AUTO) 7.4 % (20.5-51.5); MEAN CORPUSCULAR HEMOGLOBIN 31 pg (27-31); MEAN CORPUSCULAR HGB CONC 34 % (32-36); MEAN CORPUSCULAR VOLUME 91 fL (79.0-98.0); MONOCYTES # (AUTO) 0.5 K/uL (0.0-1.0); MONOCYTES % (AUTO) 3.9 % (1.7-9.3); NEUTROPHILS # (AUTO) 11.5 K/uL (1.8-7.7); NEUTROPHILS % (AUTO) 88.6 % (40.0-70.0); PLATELET COUNT (AUTO) 414 K/uL (130-430); RED BLOOD CELL COUNT(AUTO) 4.01 MIL/uL (4.2-6.2); RED CELL DISTRIBUTION WIDTH 13.4 % (9.0-15.0); WHITE BLOOD COUNT (AUTO) 12.9 K/uL (4.8-10.8)
[2020-11-05 07:38] LABS: CALCIUM 8.7 mg/dL (8.4-11.0); CREATININE 0.84 mg/dL (0.55-1.30); POTASSIUM 4.3 mmol/L (3.5-5.1)
[2020-11-05] MEDS: CHOLECALCIFEROL (VITAMIN D3) 2,000 UNIT TABLET PO SCH (08:10)
[2020-11-05] MEDS: ASCORBIC ACID 500 MG TABLET PO SCH (08:10)
[2020-11-05] MEDS: BARICITINIB -Non-Formulary 2 MG TABLET PO SCH (08:11)
[2020-11-05] MEDS: ENOXAPARIN SODIUM 40 MG/0.4 ML SYRINGE SUBCUT SCH ×2 (08:14→21:01)
[2020-11-05] MEDS: NACL 0.9% 1,000 ML IV SCH (13:12)
--- NOTE | 2020-11-05 19:15 | NUR ---
TRANSFER TO [facility]: PT TRANSFERRED TO [facility] FRO LOWER LEVEL OF CARE. PT TRANSFERRED WITH ALL BELONGINGS, ON OXYMIZER AT 4L TOLERATING WELL. REPORT GIVEN TO RN USING SBAR REPORTING. SAFETY PRECAUTIONS ENFORCED.
[2020-11-05] MEDS: cefTRIAXone 1 GM in D5W 50 ML IV SCH (20:59)
[2020-11-05] MEDS: BUDESONIDE 0.5 MG/2 ML AMPUL.NEB INH SCH (21:00)
[2020-11-05] MEDS: ZOLPIDEM TARTRATE 5 MG TABLET PO PRN (22:40)
[2020-11-06] VITALS: BP_SYST 103
[2020-11-06] MEDS: NACL 0.9% 1,000 ML IV SCH ×2 (05:34→18:04)
[2020-11-06 08:00] VITALS: BP_SYST 133
--- NOTE | 2020-11-06 08:00 | NUR ---
Initial Note Patient using restroom upon visit. Awake, alert, and oriented x 4. Ambulatory without assist. No distress or pain noted. Oxygen flowing at 5 L via oximizer and saturating at 96%. Bed locked in lowest position and call light within reach.
[2020-11-06 08:16] LABS: CALCIUM 8.7 mg/dL (8.4-11.0); CREATININE 1.23 mg/dL (0.55-1.30); POTASSIUM 4.4 mmol/L (3.5-5.1)
[2020-11-06 08:23] LABS: BASOPHILS % (AUTO) 0.2 % (0.0-2.0); EOSINOPHILS % (AUTO) 0.4 % (0.0-4.0); HEMATOCRIT 35.8 % (36-54); LYMPHOCYTES % (AUTO) 24.1 % (20.5-51.5); MEAN CORPUSCULAR HEMOGLOBIN 31 pg (27-31); MEAN CORPUSCULAR HGB CONC 34 % (32-36); MEAN CORPUSCULAR VOLUME 92 fL (79.0-98.0); MONOCYTES # (AUTO) 1.5 K/uL (0.0-1.0); MONOCYTES % (AUTO) 12.1 % (1.7-9.3); NEUTROPHILS # (AUTO) 7.9 K/uL (1.8-7.7); NEUTROPHILS % (AUTO) 63.2 % (40.0-70.0); PLATELET COUNT (AUTO) 379 K/uL (130-430); RED BLOOD CELL COUNT(AUTO) 3.89 MIL/uL (4.2-6.2); RED CELL DISTRIBUTION WIDTH 14.1 % (9.0-15.0); WHITE BLOOD COUNT (AUTO) 12.4 K/uL (4.8-10.8)
[2020-11-06] MEDS: ENOXAPARIN SODIUM 40 MG/0.4 ML SYRINGE SUBCUT SCH ×2 (09:00→21:32)
--- NOTE | 2020-11-06 09:30 | NUR ---
Notes Patient states he has chronic 5/10 pain to lower back and requesting pain medication. Will administer Tramadol with morning medications as ordered.
[2020-11-06] MEDS: BUDESONIDE 0.5 MG/2 ML AMPUL.NEB INH SCH (09:40)
[2020-11-06] MEDS: CHOLECALCIFEROL (VITAMIN D3) 2,000 UNIT TABLET PO SCH (10:01)
[2020-11-06] MEDS: ASCORBIC ACID 500 MG TABLET PO SCH (10:01)
[2020-11-06] MEDS: BARICITINIB -Non-Formulary 2 MG TABLET PO SCH (10:02)
[2020-11-06] MEDS: traMADol HCL HCL 50 MG TABLET (ULTRAM) PO PRN ×2 (10:12→16:21)
[2020-11-06 11:27] VITALS: BP_SYST 133
--- NOTE | 2020-11-06 12:00 | NUR ---
Notes Patient sitting up in chair watching TV. Pain is controlled, no distress. Oxygen flowing at 5 L via Oximizer. Call light within reach, encouraged to call. Bed in lowest position.
--- NOTE | 2020-11-06 12:36 | NUR ---
DISCHARGE PLANNING Order for dc planning for home O2. Called [facility] & are not taking any O2 orders at this time unless for capitated insurance or hospital, not taking [facility]. Called [facility], are contracted with [facility], can fax order/pt info, needs to have O2 qualifier(ABG or Home O2 eval), informed pt's nurse.
[2020-11-06 15:27] VITALS: BP_SYST 146
--- NOTE | 2020-11-06 15:47 | NUR ---
OXYGENATION LATE ENTRY DUE TO PT CARE 14:00 IN THE ROOM WITH THE PATIENT.PATIENT IS ON OXIMIZER AT 4L. REMOVED OXYGEN. 02 SAT MAINTAINING AT 93%. HAD PATIENT AMBULATE IN THE ROOM . 02 SAT AT 91 AFTER AMBULATION ON ROOM AIR. KEPT O2 SUPPORT OFF AT THIS TIME WAITING ON ABG DRAW ON ROOM AIR. ENCOURAGED DEEP BREATHING AND EDUCATED PATIENT TO KEEP O2 OFF AND CALL FOR ASSISTANCE IF SHORT OF BREATH. PATIENT VERBALIZED UNDERSTANDING
--- NOTE | 2020-11-06 16:00 | NUR ---
Notes Patient sitting up in bed, watching TV. Patient complaining of chronic lower back pain 5/10. Will administer Tramadol per MD order. Patient saturating 92% on room air. Call light within reach, encouraged to call. Bed in lowest position.
--- NOTE | 2020-11-06 18:44 | NUR ---
Closing Note Patient sitting up in bed, just finished dinner. Pain is controlled at this time, no distress noted. Patient is currently on room air. Call light left within reach, encouraged to call. Bed locked in lowest position. Addendum: 11/06/20 at 1854 by Fabiana Perry RN Will endorse to night nurse.
--- NOTE | 2020-11-06 19:35 | NUR ---
Received bedside report. pt in bed resting. pt on iso for covid. bed rails upx2. rr even and unlabored on ra. call light within reach. bed locked in lowest position. will continue to monitor
[2020-11-06] MEDS: ZOLPIDEM TARTRATE 5 MG TABLET PO PRN (21:30)
[2020-11-06] MEDS: cefTRIAXone 1 GM in D5W 50 ML IV SCH (21:34)
[2020-11-06 21:55] VITALS: BP_SYST 130
[2020-11-07] VITALS: BP_SYST 118
[2020-11-07] MEDS: NACL 0.9% 1,000 ML IV SCH (04:26)
[2020-11-07 06:06] VITALS: BP_SYST 118
[2020-11-07 07:32] LABS: CALCIUM 8.2 mg/dL (8.4-11.0); CREATININE 1.08 mg/dL (0.55-1.30)
[2020-11-07 08:00] VITALS: BP_SYST 127
--- NOTE | 2020-11-07 08:00 | NUR ---
Opening Note Patient using restroom upon visit. Awake, alert, and oriented x 4. Ambulatory without assist. No distress or pain noted. 02 saturation at 95% on room air. Bed locked in lowest position and call light within reach.
[2020-11-07 08:09] LABS: BASOPHILS % (AUTO) 0.2 % (0.0-2.0); EOSINOPHILS # (AUTO) 0.2 K/uL (0.0-0.4); EOSINOPHILS % (AUTO) 1.4 % (0.0-4.0); HEMATOCRIT 35.9 % (36-54); MEAN CORPUSCULAR HEMOGLOBIN 31 pg (27-31); MEAN CORPUSCULAR HGB CONC 34 % (32-36); MEAN CORPUSCULAR VOLUME 93 fL (79.0-98.0); MONOCYTES # (AUTO) 1.5 K/uL (0.0-1.0); MONOCYTES % (AUTO) 13.2 % (1.7-9.3); NEUTROPHILS # (AUTO) 6.5 K/uL (1.8-7.7); NEUTROPHILS % (AUTO) 58.2 % (40.0-70.0); PLATELET COUNT (AUTO) 339 K/uL (130-430); RED BLOOD CELL COUNT(AUTO) 3.87 MIL/uL (4.2-6.2); RED CELL DISTRIBUTION WIDTH 13.8 % (9.0-15.0); WHITE BLOOD COUNT (AUTO) 11.2 K/uL (4.8-10.8)
[2020-11-07] MEDS: ENOXAPARIN SODIUM 40 MG/0.4 ML SYRINGE SUBCUT SCH (08:26)
[2020-11-07] MEDS: traMADol HCL HCL 50 MG TABLET (ULTRAM) PO PRN (08:27)
[2020-11-07] MEDS: CHOLECALCIFEROL (VITAMIN D3) 2,000 UNIT TABLET PO SCH (08:27)
[2020-11-07] MEDS: ASCORBIC ACID 500 MG TABLET PO SCH (08:27)
[2020-11-07] MEDS: BARICITINIB -Non-Formulary 2 MG TABLET PO SCH (08:28)
[2020-11-07] MEDS ORDERED: APIX2.5T PO (08:51)
[2020-11-07] MEDS ORDERED: DEXA6TAB5 PO (08:52)
[2020-11-07] MEDS: BUDESONIDE 0.5 MG/2 ML AMPUL.NEB INH SCH (09:00)
[2020-11-07 09:55] VITALS: BP_SYST 127
--- NOTE | 2020-11-07 10:47 | NUR ---
D/C Patient Patient given medication reconciliation form and D/C instructions. Exit Care provided. Patient verbalized understanding. MD discussed with patient the results and treatment provided. Ambulatory with steady gait for discharge to home. Patient in stable condition, ID band removed. PICC line removed, intact and dressing applied, no active bleeding. Rx of ELIQUIS and decadron given. Patient educated on pain management. All belongings sent with patient.
== END 2020-11-07 10:47 | disposition home or self-care (01) | DRG 177 ==
LOC: SED 12:59 → SIC 15:30 → STU 11-05 18:40
PROVIDERS: ADMIT General Practice; ATTEND General Practice
PROC: XW033E5 Introduction of Remdesivir Anti-infective into Peripheral Vein, Percutaneous Approach, New Technology Group 5 (ICD-10-PCS; principal; 2020-10-26)
PROC: 5A09357 Assistance with Respiratory Ventilation, Less than 24 Consecutive Hours, Continuous Positive Airway Pressure (ICD-10-PCS; 2020-10-26)
PROC: 02HV33Z Insertion of Infusion Device into Superior Vena Cava, Percutaneous Approach (ICD-10-PCS; 2020-10-29)
PROC: 5A0935A Assistance with Respiratory Ventilation, Less than 24 Consecutive Hours, High Flow/Velocity Cannula (ICD-10-PCS; 2020-11-02)
PROC: 5A0935A Assistance with Respiratory Ventilation, Less than 24 Consecutive Hours, High Flow/Velocity Cannula (ICD-10-PCS; 2020-11-03)
DX: U07.1 COVID-19 (principal); J12.82 Pneumonia due to coronavirus disease 2019; J96.21 Acute and chronic respiratory failure with hypoxia; E43 Unspecified severe protein-calorie malnutrition; E87.1 Hypo-osmolality and hyponatremia; J81.1 Chronic pulmonary edema; E83.41 Hypermagnesemia; E66.9 Obesity, unspecified; G47.33 Obstructive sleep apnea (adult) (pediatric); R79.82 Elevated C-reactive protein (CRP); E87.6 Hypokalemia; D72.810 Lymphocytopenia; J45.909 Unspecified asthma, uncomplicated; Z68.33 Body mass index [BMI] 33.0-33.9, adult; Z79.01 Long term (current) use of anticoagulants; Z88.8 Allergy status to other drugs, medicaments and biological substances
CPT/HCPCS: 36415; 36600; 71045; 80048; 80053; 81003; 82550; 82728; 82803-TC; 83036; 83605; 83615; 83735; 83880; 84100; 84484; 85025; 85379; 85384; 85610-TC; 85651-TC; 85730-TC; 86140; 87040-TC; 87081; 93005; 94640; 94660; 96365; 96366; 96367; 96375; 99291; J0456; J0696; J1100; J1650; J2060; J2270; J3480; J7050; J7060; J7626; Q0144; Q9967; U0003

== ENCOUNTER 2021-12-01 10:18 | Emergency (ER) | payer OTHER ==
[~2021-12-01] VITALS: Ht 162.6 cm; Wt 102.5 kg
[~2021-12-01 10:18] MED LIST: APIX2.5T PO; DEXA6TAB5 PO; HYDR-3917 PO
[2021-12-01 10:43] VITALS: BP_SYST 143
--- NOTE | 2021-12-01 10:54 | NUR ---
56 yr old Male with complaint of lower back pain 12/17 with lower abdominal pain after acupuncture. pt reports hx of three back sx. no other health hx
--- NOTE | 2021-12-01 10:56 | NUR ---
RECEIVED PT FROM TRIAGE NURSE. PT BIBS WITH C/O LOW BACK PAIN. PT HAS HX OF 3 BACK SURGERIES AND RECENTLY RECEIVED ACUPUNCTURE TREATMENT FOR BACK PAIN. PT IS AAOX4, NORMAL S1S2 NOTED. PT STATES HE FEEL NAUSEATED, DENIES CONSTIPATION AND DIARRHEA. SKIN INTACT, WARM, NO EDEMA. DISTAL PULSES NORMAL. SIDERAILS UP X2.
--- NOTE | 2021-12-01 11:15 | NUR ---
DR. JACINTO AT BEDSIDE.
--- NOTE | 2021-12-01 13:06 | NUR ---
Patient given written and verbal discharge instructions and verbalizes understanding. ER MD discussed with patient the results and treatment provided. Patient in stable condition. ID arm band removed. Patient educated on pain management and to follow up with PMD. Pain Scale 2/10. Opportunity for questions provided and answered. Medication side effect fact sheet provided.
[2021-12-01 13:09] VITALS: BP_SYST 142
== END 2021-12-01 13:07 | disposition home or self-care (01) ==
LOC: SED 10:18
DX: M54.50 Low back pain, unspecified (principal); G89.29 Other chronic pain; R10.30 Lower abdominal pain, unspecified; Z88.6 Allergy status to analgesic agent; Z79.899 Other long term (current) drug therapy
CPT/HCPCS: 99281